=== PATIENT | female | born 1950 | race Caucasian/White ===

== ENCOUNTER 2018-03-23 17:04 | Emergency (ER) | payer MEDICARE, OTHER ==
[~2018-03-23] VITALS: Ht 175.3 cm; Wt 86.2 kg
[~2018-03-23 17:04] MED LIST: ALBUTEROL1.25 MG/3 INH; ASPIR 8181 MG PO; CETIRIZINE HCL10 MG PO; CHERATUSSIN AC118 ML PO; GLIPIZIDE XL5 MG PO; LIDODERM1 EACH TP; LOSARTAN POTASS25 MG PO; METFORMIN HCL500 MG PO; PRAVASTATIN SOD10 MG PO; QVAR8.7 G1; SERTRALINE HCL100 MG PO; TOPROL XL25 MG PO; TRAZODONE HCL100 MG PO; XOLAIR150 MG SUB-Q
[2018-03-23] MEDS ORDERED: SYMBICORT 16010.2 GM INH (17:25)
[2018-03-23] MEDS ORDERED: OXYCODONE-ACET1 EAC3 PO (17:25)
== END 2018-03-23 19:00 | disposition home or self-care (01) ==
LOC: ED 17:04
DX: S83.91XA Sprain of unspecified site of right knee, initial encounter (principal); I10 Essential (primary) hypertension; E11.9 Type 2 diabetes mellitus without complications; Z88.8 Allergy status to other drugs, medicaments and biological substances; Z88.5 Allergy status to narcotic agent; Z79.82 Long term (current) use of aspirin; Z79.899 Other long term (current) drug therapy; Z79.84 Long term (current) use of oral hypoglycemic drugs; X58.XXXA Exposure to other specified factors, initial encounter; Y93.01 Activity, walking, marching and hiking
CPT/HCPCS: 73560; 99283